=== PATIENT | female | born 1955 | race Caucasian/White ===

== ENCOUNTER 2019-04-25 08:04 | Day surgery (SDC) | payer OTHER ==
[2019-04-25] MEDS ORDERED: PROPOFOL 40 ML (10:26)
[2019-04-25] MEDS ORDERED: LIDOCAINE 2% (SDV) 5 ML INJ (10:26)
[2019-04-25] MEDS ORDERED: ONDANSETRON 4 MG INJ IV (10:30)
[2019-04-25] MEDS ORDERED: morphine 2 MG INJ IV (10:30)
== END 2019-04-25 14:04 | disposition home or self-care (01) ==
LOC: GIL 08:04
DX: Z12.11 Encounter for screening for malignant neoplasm of colon (principal)
CPT/HCPCS: 45378